=== PATIENT | female | born 1945 | race Hispanic/Latino ===

== ENCOUNTER 2017-01-11 17:47 | Emergency (ER) | payer MEDICARE ==
[~2017-01-11 17:47] MED LIST: Sodium Chloride 0.9% 1,000 ML BAG ONE
[2017-01-11] MEDS ORDERED: Fentanyl 100 MCG/2 ML VIAL ONE (17:52)
[2017-01-11 18:11] LABS: INR-International Normal Ratio 1.1; PTT 29.2 SEC (22.9-36.1); Prothrombin Time 13.9 SEC (12.0-14.7)
[2017-01-11 18:15] LABS: #Basophils 0.1 thou/uL (0.0-0.2); #Lymphocytes 1.6 thou/uL (1.20-3.40); #Monocytes 0.4 thou/uL (0.11-0.59); #Neutrophils 6.3 thou/uL (1.40-6.50); %Basophils 0.8 % (0.0-1.0); %Eosinophils 0.5 % (0.0-10.0); %Lymphocytes 19.3 % (21.0-51.0); %Monocytes 4.7 % (0.0-10.0); %Neutrophils 74.7 % (42.0-75.0); Hemoglobin 12.9 g/dL (12.0-16.0); Mean Corpuscular HGB CONC 33.7 g/dL (32.0-36.0); Mean Corpuscular Hemoglobin 30.9 pg (27.0-31.0); Mean Corpuscular Volume 91.8 fl (81.0-99.0); Mean Platelet Volume 7.2 fL (7.4-10.4); Platelet Count 207 thou/uL (130-400); RBC Distribution Width 11.9 % (11.5-14.5); Red Blood Cell (RBC) Count 4.19 mill/uL (4.20-5.40); White Blood Cell (WBC) Count 8.5 thou/uL (4.8-10.8)
[2017-01-11 18:22] LABS: ALT (SGPT) 21 U/L (8-55); AST (SGOT) 28 U/L (5-34); Albumin 4.1 g/dL (3.4-4.8); Alkaline Phosphatase 69 U/L (40-150); Anion Gap 16 mmol/L (10-20); BUN (Urea Nitrogen) 26 mg/dL (9.8-20.1); Bilirubin, Total 0.3 mg/dL (0.2-1.2); Calc. Creatinine Clearance 0 mL/min (70-130); Calcium 9.8 mg/dL (7.8-10.44); Carbon Dioxide 24 mmol/L (23-31); Chloride 107 mmol/L (98-107); Estimated GFR-MDRD 62; Globulin 3.1 g/dL (2.4-3.5); Glucose 111 mg/dL (83-110); Potassium 4.1 mmol/L (3.5-5.1); Protein, Total 7.2 g/dL (6.0-8.3); Sodium 143 mmol/L (136-145)
--- NOTE | 2017-01-11 18:58 | RAD ---
AP PELVIS: History: Trauma with left hip pain. FINDINGS: AP pelvis demonstrates a partially impacted left femoral neck fracture. No other acute pelvic fractu re is seen. IMPRESSION: Acute left femoral neck fracture. POS: [facility]
--- NOTE | 2017-01-11 18:59 | RAD ---
AP AND LATERAL VIEWS OF THE LEFT FEMUR: History: Fall, deformity. FINDINGS: AP and lateral views obtained and demonstrate a moderately displaced and angulated left femoral neck fracture. There is some medial deviation of the distal fracture fragment. The rest of the left femu r is unremarkable. IMPRESSION: 1. Left femoral neck fracture. 2. Severe left knee osteoarthritic changes. POS: [facility]
== END 2017-01-11 19:15 | disposition short-term general hospital (02) ==
LOC: MADERS 17:47
DX: S72.002A Fracture of unspecified part of neck of left femur, initial encounter for closed fracture (principal); I10 Essential (primary) hypertension; Z79.899 Other long term (current) drug therapy; W17.89XA Other fall from one level to another, initial encounter
CPT/HCPCS: 36416; 72170; 80053; 85025; 85610; 85730; 93005; 96374; 96376; 36415-59; J3010; J7050

== ENCOUNTER 2017-01-13 21:32 | Inpatient (IN) | payer MEDICARE ==
[2017-01-13] MEDS ORDERED: traMADol HCl 50 MG TAB PO PRN ×2 (22:17)
[2017-01-13] MEDS ORDERED: Ondansetron ODT 4 MG TAB PO PRN (22:59)
[2017-01-13] MEDS ORDERED: Docusate 100 MG CAP PO SCH (23:00)
[2017-01-13] MEDS ORDERED: Acetaminophen/Codeine 30-300mg Tablet PO SCH (23:00)
[2017-01-13] MEDS ORDERED: Metoprolol Tartrate 25 MG TAB PO SCH (23:00)
[2017-01-13 23:42] VITALS: BMI 20.9
[2017-01-14] MEDS ORDERED: Acetaminophen/Codeine 30-300mg Tablet PO PRN (05:00)
[2017-01-14] MEDS ORDERED: Bisacodyl 10 MG SUPP PR PRN (06:10)
[2017-01-14] MEDS ORDERED: Milk Of Magnesia 30 ML UDCUP PO PRN (06:13)
[2017-01-14] MEDS ORDERED: Fleet Enema 133 ML BOT PR SCH (06:15)
[2017-01-14] MEDS: Metoprolol Tartrate 25 MG TAB PO SCH ×2 (08:37→20:59)
[2017-01-14] MEDS: Docusate 100 MG CAP PO SCH ×2 (08:37→20:59)
[2017-01-14] MEDS: Hydrochlorothiazide 25 MG TAB PO SCH (08:37)
[2017-01-14] MEDS ORDERED: clonazePAM 0.5 MG TAB PO SCH (09:00)
[2017-01-14] MEDS ORDERED: Docusate 100 MG CAP PO SCH (09:00)
[2017-01-14] MEDS ORDERED: Metoprolol Tartrate 25 MG TAB PO SCH (09:00)
[2017-01-14] MEDS ORDERED: traZODone HCl 50 MG TAB PO PRN (16:33)
[2017-01-15] MEDS: Hydrochlorothiazide 25 MG TAB PO SCH (08:12)
[2017-01-15] MEDS: Docusate 100 MG CAP PO SCH ×2 (08:12→20:27)
[2017-01-15] MEDS: Metoprolol Tartrate 25 MG TAB PO SCH ×2 (08:12→20:28)
[2017-01-15] MEDS: Acetaminophen 500 MG TAB PO PRN ×2 (08:12→20:27)
[2017-01-15] MEDS: clonazePAM 0.5 MG TAB PO PRN (20:28)
[2017-01-16] MEDS: Hydrochlorothiazide 25 MG TAB PO SCH (08:46)
[2017-01-16] MEDS: Metoprolol Tartrate 25 MG TAB PO SCH ×2 (08:47→20:38)
[2017-01-16] MEDS: Docusate 100 MG CAP PO SCH ×2 (08:47→20:38)
[2017-01-16] MEDS: Acetaminophen 500 MG TAB PO PRN (20:38)
[2017-01-16] MEDS: clonazePAM 0.5 MG TAB PO PRN (20:38)
[2017-01-17] MEDS: Metoprolol Tartrate 25 MG TAB PO SCH ×2 (09:01→20:55)
[2017-01-17] MEDS: Hydrochlorothiazide 25 MG TAB PO SCH (09:01)
[2017-01-17] MEDS: Docusate 100 MG CAP PO SCH ×2 (09:01→20:55)
[2017-01-17] MEDS: Acetaminophen 500 MG TAB PO PRN ×2 (14:55→20:55)
[2017-01-17] MEDS: clonazePAM 0.5 MG TAB PO PRN (20:55)
[2017-01-18] MEDS: Hydrochlorothiazide 25 MG TAB PO SCH (08:18)
[2017-01-18] MEDS: Metoprolol Tartrate 25 MG TAB PO SCH ×2 (08:19→20:33)
[2017-01-18] MEDS: Docusate 100 MG CAP PO SCH ×2 (08:19→20:33)
[2017-01-18] MEDS: clonazePAM 0.5 MG TAB PO PRN (20:33)
[2017-01-18] MEDS: Acetaminophen 500 MG TAB PO PRN (20:33)
[2017-01-19] MEDS: Metoprolol Tartrate 25 MG TAB PO SCH ×2 (07:50→20:32)
[2017-01-19] MEDS: Hydrochlorothiazide 25 MG TAB PO SCH (07:50)
[2017-01-19] MEDS: Docusate 100 MG CAP PO SCH ×2 (07:50→20:32)
[2017-01-19] MEDS ORDERED: Bisacodyl 10 MG SUPP PR PRN (10:14)
[2017-01-19] MEDS ORDERED: Milk Of Magnesia 30 ML UDCUP PO PRN (10:15)
[2017-01-19] MEDS ORDERED: traZODone HCl 50 MG TAB PO PRN (10:15)
[2017-01-19] MEDS: Acetaminophen 500 MG TAB PO PRN ×2 (14:06→22:14)
[2017-01-19] MEDS: clonazePAM 0.5 MG TAB PO PRN (22:14)
[2017-01-20] MEDS: Docusate 100 MG CAP PO SCH ×2 (08:49→21:22)
[2017-01-20] MEDS: Hydrochlorothiazide 25 MG TAB PO SCH (08:49)
[2017-01-20] MEDS: Metoprolol Tartrate 25 MG TAB PO SCH ×2 (08:49→21:23)
[2017-01-20] MEDS: Acetaminophen 500 MG TAB PO PRN ×2 (08:52→21:22)
[2017-01-20] MEDS: clonazePAM 0.5 MG TAB PO PRN (21:22)
[2017-01-21 05:40] VITALS: BP 118/67; TEMP 98.1
[2017-01-21] MEDS: Acetaminophen 500 MG TAB PO PRN (07:48)
[2017-01-21] MEDS: Hydrochlorothiazide 25 MG TAB PO SCH (08:39)
[2017-01-21] MEDS: Docusate 100 MG CAP PO SCH (08:40)
[2017-01-21] MEDS: Metoprolol Tartrate 25 MG TAB PO SCH (08:40)
--- NOTE | 2017-01-22 04:39 | DIS ---
DATE OF ADMISSION: 01/13/2017 DATE OF DISCHARGE: 01/21/2017 ATTENDING PHYSICIAN: Nara Martinez M.D. PRIMARY CARE PHYSICIAN: Out of [facility], [place], [place]. ORTHOPEDIC DOCTOR: Andrew Rodriguez M.D. REASON FOR ADMISSION: Skilled rehab in [facility]. DISPOSITION: Home. CONDITION ON DISCHARGE: Stable. HOME MEDICATIONS/DISCHARGE MEDICATIONS: 1. Acetaminophen 500 mg p.o. q. 6 hours p.r.n. 2. Bisacodyl 10 mg per rectum p.r.n. 3. Docusate 100 mg p.o. b.i.d. p.r.n. 4. Hydrochlorothiazide 12.5 mg p.o. daily. 5. Metoprolol 1 tablet p.o. b.i.d. 6. Clonazepam 0.5 mg p.o. b.i.d. p.r.n. DIET: Regular. ACTIVITIES: To use the rolling walker at all times. Fall precautions. FOLLOW UP: 1. With PCP or Dr. Martinez in 1 week for staple removal. 2. Follow up with Dr. Rodriguez for ortho care in 2 weeks. 3. To continue outpatient rehabilitation at [facility] per the patient's request. HISTORY OF PRESENT ILLNESS AND HOSPITAL COURSE: Ms. Beth is a 71-year-old female who was reported to have a fall at home, sustaining a fracture to her left femoral neck. The patient un derwent left hip arthroplasty done by Dr. Rodriguez at [facility] in [place] on 01/12/2017. The patient was reported to have an uncomplicated postoperative course. She was subseq uently transferred to [facility] on 01/13/2017 for further rehabilitation. The patient had a remarkable rehabilitation course. She was walking about 400 feet using her rolling walker wit h contact guard assist. Overall, pain is adequately controlled with plain Tylenol alone. The pat ient reports significant intolerance to tramadol, thus medication was discontinued. The patient rep orts some hallucinations with the medication. On 01/21/2017, the patient was adamant to go home as she wanted to see her son before her son took off out of town assignment. Family was comfortable wi th this. Her primary campground caretaker is her sister who was with her all the time while in the rehabilitat ion stay. Time spent on this discharge 30 minutes in examining the patient and coordinating care.
== END 2017-01-21 15:08 | disposition home or self-care (01) | DRG 560 ==
LOC: MADMS 21:32
PROVIDERS: ADMIT Family Medicine; ATTEND Family Medicine
DX: S72.002D Fracture of unspecified part of neck of left femur, subsequent encounter for closed fracture with routine healing (principal); R44.3 Hallucinations, unspecified; T40.4X5A Adverse effect of other synthetic narcotics, initial encounter; Z96.642 Presence of left artificial hip joint; Z47.1 Aftercare following joint replacement surgery; W19.XXXD Unspecified fall, subsequent encounter
CPT/HCPCS: G8978-GP-CK; G8979-GP-CJ

== ENCOUNTER 2020-02-16 11:49 | Outpatient (CLI) | payer MEDICARE ==
[2020-02-16 12:15] LABS: Anion Gap 13 mmol/L (10-20); BUN (Urea Nitrogen) 16 mg/dL (9.8-20.1); Calc. Creatinine Clearance 0 mL/min (70-130); Calcium 9.5 mg/dL (7.8-10.44); Carbon Dioxide 27 mmol/L (23-31); Chloride 101 mmol/L (98-107); Estimated GFR-MDRD 73; Glucose 96 mg/dL (83-110); Potassium 4.8 mmol/L (3.5-5.1); Sodium 136 mmol/L (136-145)
== END 2020-02-16 11:50 | disposition home or self-care (01) ==
LOC: MADLABBHPM 11:49
PROVIDERS: ATTEND Family Medicine
DX: E87.5 Hyperkalemia (principal)
CPT/HCPCS: 36415; 80048

== ENCOUNTER 2021-10-30 10:17 | Emergency (ER) | payer OTHER, MEDICARE ==
[2021-10-30] MEDS ORDERED: Acetaminophen 325 MG TAB ONE (11:50)
== END 2021-10-30 12:00 | disposition home or self-care (01) ==
LOC: MADERS 10:17
DX: S29.012A Strain of muscle and tendon of back wall of thorax, initial encounter (principal); S20.212A Contusion of left front wall of thorax, initial encounter; W01.198A Fall on same level from slipping, tripping and stumbling with subsequent striking against other object, initial encounter; I10 Essential (primary) hypertension; Z79.899 Other long term (current) drug therapy

== ENCOUNTER 2023-09-10 12:02 | Outpatient (CLI) | payer MEDICARE | END 2023-09-10 12:03 | disposition home or self-care (01) | LOC: MADRAD 12:02 | PROVIDERS: ATTEND Family Medicine | DX: M25.552 Pain in left hip (principal); Z98.890 Other specified postprocedural states | CPT/HCPCS: 72170 ==

== ENCOUNTER 2024-02-06 09:53 | Emergency (ER) | payer MEDICARE ==
[~2024-02-06 09:53] MED LIST changes: +Iopamidol 370 76% 100 ML VIAL ONE; -Sodium Chloride 0.9% 1,000 ML BAG ONE
[2024-02-06 11:32] LABS: Bilirubin Negative (Negative); Blood, Urine Trace (Negative); Clarity Clear (Clear); Glucose, Urine (Dipstick) Negative (Negative); Ketone, Urine Negative (Negative); Leukocyte Moderate (Negative); Nitrite Negative (Negative); Protein, Urine (Dipstick) Negative (Neg-Trace); Urobilinogen 0.2 mg/dL (Less than 2); pH, Urine 7.5 (5.0-9.0)
[2024-02-06] MEDS ORDERED: Sodium Chloride 0.9% 1,000 ML ONE (11:37)
[2024-02-06 11:41] LABS: Hematocrit 46.8 % (36.0-47.0); Hemoglobin 14.5 g/dL (12.0-16.0); Mean Corpuscular HGB CONC 30.9 g/dL (32.0-36.0); Mean Corpuscular Hemoglobin 28.5 pg (27.0-31.0); Mean Corpuscular Volume 92.2 fl (78.0-98.0); Platelet Count 267 10x3/uL (130-400); RBC Distribution Width 12.2 % (11.5-14.5); Red Blood Cell (RBC) Count 5.08 mill/uL (4.20-5.40); White Blood Cell (WBC) Count 14.4 10x3/uL (4.8-10.8)
[2024-02-06 12:08] LABS: CAUTI Indications for Culture Pelvic or flank pain; RBC/HPF 0-3 HPF (0-3); Squamous Epithelial 0-3 HPF (0-3)
[2024-02-06 12:09] LABS: Bacteria/HPF Rare-Few HPF (None Seen); Mucous/LPF Few LPF (<2+); Urine Culture Reflex No No
[2024-02-06 12:15] LABS: Band 8 % (5-11); Lymphocytes 5 % (21-51); MDiff Complete? YES; Monocytes 5 % (0-10); Neutrophil 82 % (42-75); Platelet Adequacy Comment Appears Adequate
[2024-02-06 12:19] LABS: ALT (SGPT) 18 U/L (8-55); AST (SGOT) 27 U/L (5-34); Albumin 3.9 g/dL (3.4-4.8); Alkaline Phosphatase 69 U/L (40-110); Anion Gap 17 mmol/L (10-20); BUN (Urea Nitrogen) 18 mg/dL (9.8-20.1); Bilirubin, Total 0.8 mg/dL (0.2-1.2); Calc. Creatinine Clearance 0 mL/min (70-130); Calcium 9.1 mg/dL (7.8-10.44); Carbon Dioxide 19 mmol/L (23-31); Chloride 104 mmol/L (98-107); Estimated GFR 83; Globulin 2.5 g/dL (2.4-3.5); Glucose 112 mg/dL (83-110); Potassium 4.3 mmol/L (3.5-5.1); Protein, Total 6.4 g/dL (5.8-8.1); Sodium 136 mmol/L (136-145)
[2024-02-06] MEDS ORDERED: Piperacillin/Tazobactam 3.375 GM VIAL ONE (13:45)
[2024-02-06] MEDS ORDERED: Sodium Chloride 0.9% 100 ML ONE (13:45)
== END 2024-02-06 17:12 | disposition short-term general hospital (02) ==
LOC: MADERS 09:53
DX: K52.9 Noninfective gastroenteritis and colitis, unspecified (principal); N81.4 Uterovaginal prolapse, unspecified; I10 Essential (primary) hypertension; Z72.89 Other problems related to lifestyle
CPT/HCPCS: 74177; 80053; 81001; 85025; 96361; 96374; J2543; J7030; Q9967

== ENCOUNTER 2024-04-17 17:30 | Emergency (ER) | payer MEDICARE | END 2024-04-17 18:41 | disposition home or self-care (01) | LOC: MADERS 17:30 | DX: M25.561 Pain in right knee (principal); I10 Essential (primary) hypertension | CPT/HCPCS: 99283 ==

== ENCOUNTER 2025-04-13 11:00 | Outpatient (CLI) | payer OTHER ==
[2025-04-13 11:26] LABS: #Basophils 0.1 thou/uL (0.0-0.2); #Eosinophils 0.1 thou/uL (0.0-0.7); #Lymphocytes 1.6 thou/uL (1.20-3.40); #Monocytes 0.3 thou/uL (0.11-0.59); #Neutrophils 3.2 thou/uL (1.40-6.50); %Basophils 1.2 % (0.0-1.0); %Eosinophils 1.5 % (0.0-10.0); %Lymphocytes 31.3 % (21.0-51.0); %Monocytes 5.5 % (0.0-10.0); %Neutrophils 60.5 % (42.0-75.0); Hematocrit 47.5 % (36.0-47.0); Hemoglobin 15.0 g/dL (12.0-16.0); Mean Corpuscular Hemoglobin 29.3 pg (27.0-31.0); Mean Corpuscular Volume 92.8 fl (78.0-98.0); Platelet Count 318 10x3/uL (130-400); Red Blood Cell (RBC) Count 5.12 mill/uL (4.20-5.40); White Blood Cell (WBC) Count 5.2 10x3/uL (4.8-10.8)
[2025-04-13 11:45] LABS: ALT (SGPT) 16 U/L (Less than 34); AST (SGOT) 27 U/L (11-34); Albumin 4.5 g/dL (3.1-4.5); Alkaline Phosphatase 68 U/L (40-110); Anion Gap 16 mmol/L (10-20); BUN (Urea Nitrogen) 20 mg/dL (9.8-20.1); Bilirubin, Total 0.4 mg/dL (0.3-1.2); Calc. Creatinine Clearance 0 mL/min (70-130); Calcium 9.7 mg/dL (7.8-10.44); Carbon Dioxide 26 mmol/L (23-31); Cardiac Risk 2.6 (Less than 4.5); Chloride 103 mmol/L (98-107); Cholesterol 205 mg/dl (< 200 Desired); Globulin 3.1 g/dL (2.4-3.5); Glucose 101 mg/dL (83-110); HDL Cholesterol 80 mg/dL (>60 Neg Risk); LDL Cholesterol, Calculated 109 mg/dL; Potassium 4.5 mmol/L (3.5-5.1); Sodium 140 mmol/L (136-145); Triglycerides 82 mg/dL (Less than 150)
[2025-04-13 16:36] LABS: Hep C IgG Ab NONREACTIVE S/CO (NonReactive); Hep C Index 0.06 S/CO (0-0.79)
[2025-04-13 16:49] LABS: Ferritin 151.86 ng/mL (10-291)
== END 2025-04-13 11:01 | disposition home or self-care (01) ==
LOC: MADLAB 11:00
PROVIDERS: ATTEND Family Medicine
DX: Z13.6 Encounter for screening for cardiovascular disorders (principal); Z11.59 Encounter for screening for other viral diseases; Z13.1 Encounter for screening for diabetes mellitus; R79.0 Abnormal level of blood mineral
CPT/HCPCS: 36415; 80053; 80061; 82728; 85025; 86803